=== PATIENT | female | born 1995 | race Caucasian/White ===

== ENCOUNTER 2017-01-23 01:37 | Emergency (ER) | payer SELFPAY ==
[~2017-01-23] VITALS: Ht 167.6 cm; Wt 52.5 kg
[2017-01-23 01:48] VITALS: Ht 167.6 cm; Wt 52.5 kg
== END 2017-01-23 05:34 | disposition left against medical advice (07) ==
LOC: E/R 01:37
DX: Z53.21 Procedure and treatment not carried out due to patient leaving prior to being seen by health care provider (principal)

== ENCOUNTER 2019-03-20 01:44 | Inpatient (IN) | payer OTHER ==
[~2019-03-20] VITALS: Ht 167.6 cm; Wt 57.5 kg
[2019-03-20 01:48] VITALS: Ht 167.6 cm; Wt 57.5 kg
[2019-03-20] MEDS ORDERED: PREN-93 PO (01:49)
[2019-03-20 01:56] VITALS: BP 115/71; PULSE 86; RESP 16
[2019-03-20] MEDS: TERBUTALINE 1 MG/ML INJ SC PRN ×2 (02:40→03:28)
[2019-03-20] MEDS ORDERED: LACTATED RINGER'S 1,000 ML IV ONE (04:30)
[2019-03-20] MEDS: LACTATED RINGER'S 1,000 ML IV SCH ×6 (05:08→22:49)
[2019-03-20] MEDS ORDERED: NIFEdipine 10 MG CAP PO ONE (06:00)
[2019-03-20] MEDS ORDERED: ACETAMINOPHEN 325 MG TAB PO PRN (07:00)
[2019-03-20] MEDS ORDERED: TERBUTALINE 2.5 MG TAB PO PRN (07:00)
--- NOTE | 2019-03-20 07:09 | TRIAGE ---
OB Triage Datetime Report Generated by CPN: 03/20/2019 07:08 Datetime: 03/20/2019 07:00 Labor Evaluation Frequency: 1.5-5 Monitor Mode: External Duration (sec)2399: 60-110 Pattern: Normal: <= 5 Contractions in 10 Minutes Heart Rate FHR Baseline Rate: 135 Monitor Mode: External US Variability: Moderate 6-25 bpm Accelerations: 15X15 Decelerations: None Category: Category I Datetime: 03/20/2019 06:00 Labor Evaluation Frequency: X6 Monitor Mode: External Duration (sec)2399: 60-80 Pattern: Normal: <= 5 Contractions in 10 Minutes Heart Rate FHR Baseline Rate: 135 Monitor Mode: External US Variability: Moderate 6-25 bpm Accelerations: 15X15 Decelerations: None Datetime: 03/20/2019 05:54 Pain Assessment Pain Scale: 1 Pain Presence: Intermittent Pain Type: Cramping Pain Location: Back Pain Goal: 0 Pain Relief Measures: Comfort Measures Datetime: 03/20/2019 05:00 Labor Evaluation Frequency: 2-4 Monitor Mode: External Duration (sec)2399: 60-160 Pattern: Normal: <= 5 Contractions in 10 Minutes Heart Rate FHR Baseline Rate: 135 Monitor Mode: External US Variability: Moderate 6-25 bpm Accelerations: 15X15 Decelerations: None Category: Category I Datetime: 03/20/2019 04:15 Pain Assessment Pain Scale: 2 Pain Presence: Intermittent Pain Type: Cramping; Contraction Pain Location: Back Pain Goal: 0 Pain Relief Measures: Comfort Measures Datetime: 03/20/2019 04:00 Labor Evaluation Frequency: 1.5-7 Monitor Mode: External Duration (sec)2399: 40-100 Pattern: Normal: <= 5 Contractions in 10 Minutes Heart Rate FHR Baseline Rate: 130 Monitor Mode: External US Variability: Moderate 6-25 bpm Accelerations: 15X15 Decelerations: None Category: Category I Datetime: 03/20/2019 03:00 Labor Evaluation Frequency: 2-3 Monitor Mode: External Duration (sec)2399: 60-120 Pattern: Normal: <= 5 Contractions in 10 Minutes Heart Rate FHR Baseline Rate: 125 Monitor Mode: External US Variability: Moderate 6-25 bpm Accelerations: 15X15 Decelerations: None Datetime: 03/20/2019 02:29 Vaginal Exam Dilatation (cms): 1.5 Effacement (%): 70 Station: -2 Vaginal Bleeding: None Cervix, Consistency: Soft Cervix, Position: Midposition Presentation 'A': Cephalic Datetime: 03/20/2019 01:58 Time of Arrival: 03/20/2019 01:40 EGA: 35.2 Arrived By: Ambulatory Arrived From: Home Chief Complaint: bleeding and back pain Movement: Decreased Contractions: Denies/Absent Rupture of Membranes: Denies Vaginal Bleeding: Small Vaginal Discharge: Present Recent Sexual Intercouse: Denies Abdominal Trauma: Not Applicable Patient Complaints: Cramping; Back Pain Time Provider Notified: 03/20/2019 02:23 Provider Notified: KELLEN (Annotations: Data stored by CPN on behalf of user) Initial Plan: CEFM, UA, TERB, PO HYDRATION, BPP Datetime: 03/20/2019 01:56 Stage of : OB Triage Maternal Assessment Level of Consciousness: Keenly Alert, Responsive DTR's/Clonus: DTRs 2+; No Clonus Headache: Denies Breath Sounds, Left: Clear and Equal Breath Sounds, Right: Clear and Equal Nausea/Vomiting: Denies RUQ Epigastric Pain: Denies Lower Extremities Edema: None Degree: None Upper Extremities Edema: None Degree: None Facial Edema: None Temperature Route: Oral Fall Risk Assessment History of Falling: (0) No Secondary Diagnosis: (0) No Ambulatory Aid: (0) Bedrest/Nurse Assist IV Therapy: (0) No Gait: (0) Normal/Bedrest/Immobile Mental Status: (0) Oriented to Own Ability Fall Score: 0 Fall Risk Score Definition: No Risk: No action required Pain Assessment Pain Scale: 3 Pain Presence: Constant Pain Type: Cramping Pain Location: Abdomen; Back Pain Goal: 0 Pain Relief Measures: Comfort Measures
--- NOTE | 2019-03-20 07:33 | HP ---
Date/Time of Note Date/Time of Note DATE: 03/20/19 TIME: 07:20 OB - History Hx of Present Free Text/Dictation 23 y.o. A1 with an IUP at 35w 2d came in for bleeding and lower back pain and was found to be eliana. Has been given 2 doses of SQ terbutaline and one dose of Procardia to no effect. She is now eliana every 2 minutes but the pt appears very comfortable although she is aware of them. I explained to the pt that we don't normally give magnesium after 34 weeks but we can either admit her and follow her expectantly or can keep giving her terbutaline orally to see if we can delay delivery ( Procardia is not a great choice as the pt's blood pressure runs low as it is). The pt and her partner prefer medication to try to delay delivery. Estimated Due Date: Apr 22, 2019 : 2 Para: 0 Spontaneous : 1 Care: Good Care Ultrasounds: Normal mid trimester US Obstetrical Complications: None Medical Complications: None Other Concerns: PMHx: none. PSHx: none. NKDA. Past Family/Social History * Past Medical, Surgical, Family and Obstetric Histories reviewed from chart. Blood Type: Unknown Rubella: unknown RPR/VDRL: Unknown GBS Status: Unknown HBsAG: Unknown OB Admission Exam Vital Signs Vital Signs Vital Signs Date Temp Pulse Resp B/P (MAP) Pulse Ox O2 O2 Flow FiO2 Time Delivery Rate 03/20/19 98.2 86 16 115/71 Room Air 01:56 (86) Physical Exam HEENT: WNL Heart: Rhythm Normal Lungs: Clear Abdomen: WNL Extremities: Normal Reflexes: Normal Cervical Dilatation: 1cm Effacement: Other (70%) Station: -2 Membranes: Intact Heart Rate: 130's Accelerations: Accelerations Present Decelerations: No Decelerations Varibility: Moderate Contractions on Admission: < 5 Minutes Apart Intensity: Mild OB Assessment/Plan Reason for admission: IUP - Plan: Expectant Management Other plan: Oral terbutaline 2.5 mg p.o. q 4-6 hours prn. Beta-methasone. records. EFW. REN FOREMAN MD Mar 20, 2019 07:30
[2019-03-20] MEDS: BETAMET NA PHOS/AC(6 MG/ML) 2 ML INJ SYG IM SCH ×2 (07:58→23:30)
[2019-03-20] MEDS: PRENATAL VITAMIN PO SCH (09:15)
[2019-03-20] MEDS: DOCUSATE SODIUM 100 MG CAP PO SCH (09:15)
[2019-03-20] MEDS ORDERED: MAGNESIUM SULFATE 4 GM/100 ML 100 ML IV ONE (23:30)
[2019-03-21] MEDS: MAGNESIUM SULFATE 20 GM/500 ML 500 ML IV SCH ×3 (00:36→20:59)
[2019-03-21] MEDS: LACTATED RINGER'S 1,000 ML IV SCH ×3 (05:00→10:32)
[2019-03-21] MEDS: DOCUSATE SODIUM 100 MG CAP PO SCH (10:29)
[2019-03-21] MEDS: PRENATAL VITAMIN PO SCH (10:29)
[2019-03-22] MEDS: LACTATED RINGER'S 1,000 ML IV SCH ×2 (00:13→10:52)
[2019-03-22] MEDS: DOCUSATE SODIUM 100 MG CAP PO SCH (10:51)
[2019-03-22] MEDS: PRENATAL VITAMIN PO SCH (10:51)
--- NOTE | 2019-03-22 16:47 | QN ---
Documentation Comment 35+wks GA sitting comfortably in Bed NST reassuring BPP 05/05 Pelvic exam 1 cm/long /post --->discharged with precautions --->Questions answered --->follow up with provider ZAID BALL M.D. Mar 22, 2019 16:47
--- NOTE | 2019-03-22 16:48 | DS ---
Date/Time of Note Date/Time of Note DATE: 03/22/19 TIME: 16:47 Discharge Summary Admission/Discharge Info Admit Date/Time Mar 20, 2019 at 06:47 Discharge Date/Time mar 22 Discharge Diagnosis labor 35+ Patient Condition: Good Hospital Course uneventful Home Meds Reported Medications Vit No.124/Iron/FA ( Vitamin Tablet) 1 Each Tablet, 1 EACH PO, TAB 03/20/19 Primary Care Provider Care Physician No Primary Pending Labs Laboratory Tests Test 03/21/19 17:46 03/22/19 00:30 03/22/19 06:16 03/22/19 15:22 Magnesium 5.9 5.7 4.5 Level mg/dl (1.7-2.5) mg/dl (1.7-2.5 mg/dl (1.7-2.5 ) ) Membranes NEGATIVE (NEGA Rupture TIVE) AZID BALL M.D. Mar 22, 2019 16:48
== END 2019-03-22 16:53 | disposition home or self-care (01) | DRG 833 ==
LOC: L-D 01:44 → OBT 01:44 → PP1 06:47 → OBT 06:47 → L-D 07:23
PROVIDERS: ADMIT Obstetrics & Gynecology; ATTEND Obstetrics & Gynecology
DX: O60.03 Preterm labor without delivery, third trimester (principal); O46.93 Antepartum hemorrhage, unspecified, third trimester; Z3A.35 35 weeks gestation of pregnancy
CPT/HCPCS: 36415; 76818; 81001; 83735; 84112; 85025; 87081; 96360; 96361; 96372; G0463; J0702; J3105; J3475; J7120

== ENCOUNTER 2019-04-12 23:01 | Inpatient (IN) | payer OTHER ==
[~2019-04-12] VITALS: Ht 167.6 cm; Wt 57.4 kg
[~2019-04-12 23:01] MED LIST: PREN-93 PO
[2019-04-12 23:30] VITALS: BP 104/62; PULSE 90; RESP 15
--- NOTE | 2019-04-13 02:51 | PN ---
Triage Information Date/Time Reason for visit: Uterine contractions Weeks of Gestation 38 weeks and 4 days /Para Diabetes: none Hypertention: none Objective Vital Signs Date Temp Pulse Resp B/P (MAP) Pulse Ox O2 O2 Flow FiO2 Time Delivery Rate 04/12/19 98.5 90 15 104/62 Room Air 23:30 (76) Heart Rate: 130's Heart Rate Comments Tracing Reactive Contractions: 6-10 Minutes Apart Exam Cervix 3 cm Results/Medications Results 24 hrs Laboratory Tests Test 04/12/19 23:10 Urine Color YELLOW Urine Clarity SLIGHTLY CLOUDY A Urine pH 6.0 Urine Specific [place] 1.015 Urine Ketones NEGATIVE Urine Nitrite NEGATIVE Urine Bilirubin NEGATIVE Urine Urobilinogen NEGATIVE Urine Leukocyte Esterase 3+ H Urine Microscopic RBC 4 Urine Microscopic WBC 39 H Urine Squamous Epithelial Cells FEW Urine Bacteria FEW A Urine Hemoglobin NEGATIVE Urine Glucose NEGATIVE Urine Total Protein NEGATIVE Urine Opiates Screen Negative Urine Barbiturates Negative Urine Amphetamines Screen Negative Urine Benzodiazepines Screen Negative Urine Cocaine Screen Negative Urine Cannabinoids Negative Disposition: Assessment/Plan Monitor for labor BPP TERE SZYMANSKI MD Apr 13, 2019 02:51
[2019-04-13] MEDS ORDERED: LACTATED RINGER'S 1,000 ML IV PRN (03:59)
[2019-04-13] MEDS ORDERED: LIDOCAINE 1% (MPF) 30 ML INJ INJ PRN (04:00)
[2019-04-13] MEDS ORDERED: MINERAL OIL LIGHT 10 ML VIAL TOP ONE (04:00)
[2019-04-13] MEDS ORDERED: LACTATED RINGER'S 1,000 ML IV ONE (04:00)
[2019-04-13] MEDS ORDERED: OXYTOCIN 30 UNITS/LR 500 ML IV PRN ×2 (04:00→19:00)
[2019-04-13] MEDS ORDERED: AMPICILLIN 2 GM/NS (PMX) 100 ML IV ONE (04:00)
[2019-04-13] MEDS ORDERED: IBUPROFEN 600 MG TAB PO PRN (04:00)
[2019-04-13] MEDS ORDERED: OXYTOCIN 30 UNITS/LR 500 ML IV SCH ×2 (04:00)
[2019-04-13] MEDS ORDERED: BUTORPHANOL 2 MG INJ IV PRN (04:00)
[2019-04-13] MEDS ORDERED: METHYLERGONOVINE 0.2 MG INJ IM PRN ×2 (04:00→19:00)
[2019-04-13] MEDS ORDERED: CARBOPROST 250 MCG INJ IM PRN ×2 (04:00→19:00)
[2019-04-13] MEDS: LACTATED RINGER'S 1,000 ML IV SCH ×2 (04:49→12:45)
[2019-04-13] MEDS: BUTORPHANOL 2 MG INJ IV PRN ×2 (05:19→10:03)
[2019-04-13] MEDS: AMPICILLIN 1 GM/NS (PMX) 50 ML IV SCH ×3 (08:52→16:00)
[2019-04-13] MEDS: MISOPROSTOL 200 MCG TAB PR PRN ×2 (16:06→16:54)
[2019-04-13 17:50] VITALS: BP 117/83; PULSE 75; RESP 18
--- NOTE | 2019-04-13 17:57 | HP ---
Date/Time of Note Date/Time of Note DATE: 04/13/19 TIME: 17:53 OB - History Hx of Present Free Text/Dictation 23 years old 2 para 0-0-1-0 with single intrauterine at 38 weeks and 5 days with PAWAN of 04/22/2019 complaining of uterine contractions. She states good movement. She denies nausea, vomiting, shortness of breath, chest pain, headache, visual changes, vaginal bleeding or LOF. Chief Complaint: Uterine contractions Estimated Due Date: Apr 22, 2019 : 2 Para: 0 Spontaneous : 1 Therapeutic : 0 Care: Good Care Ultrasounds: Normal mid trimester US Obstetrical Complications: None Medical Complications: None Past Family/Social History * Past Medical, Surgical, Family and Obstetric Histories reviewed from chart. Blood Type: A+ Rubella: immune RPR/VDRL: Negative GBS Status: Unknown HBsAG: Negative OB Admission Exam Vital Signs Vital Signs Vital Signs Date Temp Pulse Resp B/P (MAP) Pulse Ox O2 O2 Flow FiO2 Time Delivery Rate 04/12/19 98.5 90 15 104/62 Room Air 23:30 (76) Physical Exam HEENT: WNL Heart: Rhythm Normal Lungs: Clear Abdomen: WNL Extremities: Normal Cervical Dilatation: 3cm Effacement: 75% Station: -3 Membranes: Intact Heart Rate: 130's Accelerations: Accelerations Present Decelerations: No Decelerations Varibility: Moderate Contractions on Admission: < 5 Minutes Apart Intensity: Moderate Last 72 hours Lab Results CBC & BMP 04/13/19 04:20 OB Assessment/Plan Other plan: 23 years old -0-1-0 at 38 weeks and 5 days in labor -FHR: No sign of metabolic acidosis- Category I -Continuous EFM, toco -CBC, blood type and screen -Analgesia options with R/B/A discussed in detail with patient -Epidural per patient request -Please see the orders -A+/Rubella: Immune -GBS: Unknown, ampicillin ordered Admission, procedures, expectations, risks and possible complications have been discussed in detail with the patient. Risk of vaginal delivery including but not limited to bleeding, infection, cervical laceration, placental retention, injury to fetus, blood transfusion, blood transfusion related infection, risk of anesthesia, adhesion, cervical laceration, episiotomy/laceration, possible delivery with risk of bleeding, infection, injury to other organs (bow el, bladder, ureter, vessels, nerves), injury to fetus, blood transfusion, blood transfusion related infection, risk of anesthesia, scar and hernia formation, needs for future , removal of uterus or any other indicated surgery discussed with the patient. She expressed understanding and repeats the risks. All of her questions were answered. She signed the informed consent. PHYSICIAN'S VERIFICATION OF INFORMED CONSENT The patient and her family were counseled regarding the procedure, its indications, risks, potential complications and alternatives and any questions were answered. Consent was obtained. PLANNED PROCEDURE/TREATMENT: Vaginal delivery, episiotomy, repair of laceration possible delivery COREY ROMERO Apr 13, 2019 17:57
--- NOTE | 2019-04-13 18:03 | LDN ---
Date/Time of Note Date/Time of Note DATE: 04/13/19 TIME: 17:59 Delivery Summary 23 years old -0-1-0 with single intrauterine at 38 weeks and 5 days delivered a viable female over bilateral lateral vaginal wall laceration and median episiotomy. Nose and mouth suction. Rest of body delivered. Cord clamp and caught after stopping pulsation. Baby given to the nurse. Placenta delivered spontaneously and intact with three-vessel cord. Laceration repaired with 2-0 Vicryl and 4-0 chromic. Patient tolerated procedure well Time of [id number] Weight 7 pounds 5 ounces - 3310 g 9 at 1 minutes and 9 at 5 minutes EBL: 350 ml Weeks of Gestation 38 weeks and 5 days Placenta Delivered: Spontaneously Meconium: none Episiotomy: Yes (Median) Indication for episiotomy Small perineum Anesthesia type: Local Estimated blood loss: 350 Sponge & Needle done & correct: Yes All needle counts correct: Yes Any foreign bodies felt in the: No Infant Delivery Information Sex Infant Sex: female Apgars 1 Minute: 9 5 Minute: 9 10 Minute: 10 Suctioning Nose & mouth suctioned at [place]: Yes Umbilical Cord Umbilical cord with: 3 Vessels Cord presentations: no nuchal cord Cord Blood was obtained: Yes Mother & Baby Disposition Disposition Mom & Baby to Maternity; Good: Yes COREY ROMERO Apr 13, 2019 18:02
[2019-04-13] MEDS: LACTATED RINGER'S 1,000 ML IV* SCH (18:46)
[2019-04-13] MEDS: DEXTROSE 5%-LR 1,000 ML IV SCH (18:46)
[2019-04-13] MEDS ORDERED: BENZOCAINE 20% 56 ML SPRAY TOP PRN (19:00)
[2019-04-13] MEDS ORDERED: DIPHENHYDRAMINE 50 MG INJ IV PRN (19:00)
[2019-04-13] MEDS ORDERED: DIBUCAINE 1% 30 GM OINT TOP PRN (19:00)
[2019-04-13] MEDS ORDERED: LANOLIN HPA 1 PKT TOP PRN (19:00)
[2019-04-13] MEDS ORDERED: ONDANSETRON 4 MG INJ IV PRN (19:00)
[2019-04-13] MEDS ORDERED: ZOLPIDEM 5 MG TAB PO PRN (19:00)
[2019-04-13] MEDS ORDERED: OXYCODONE/ASPIRIN (4.88/325) TAB PO PRN (19:00)
[2019-04-13] MEDS ORDERED: ACETAMINOPHEN 325 MG TAB PO PRN (19:00)
[2019-04-13] MEDS ORDERED: WITCH HAZEL/GLYCERIN PAD PR PRN (19:00)
[2019-04-13] MEDS ORDERED: MISOPROSTOL 200 MCG TAB PR PRN (19:00)
[2019-04-13] MEDS ORDERED: MAGNESIUM HYDROXIDE 30ML CUP PO PRN (19:00)
[2019-04-13] MEDS ORDERED: SENNA/DOCUSATE NA (8.6MG/50MG) TAB PO PRN (19:00)
[2019-04-13 20:00] VITALS: BP 110/76; PULSE 69; RESP 20
[2019-04-14] MEDS: IBUPROFEN 600 MG TAB PO SCH ×4 (00:37→18:09)
[2019-04-14] MEDS: LACTATED RINGER'S 1,000 ML IV* SCH ×3 (00:48→18:46)
[2019-04-14] MEDS: DEXTROSE 5%-LR 1,000 ML IV SCH ×3 (02:41→18:46)
[2019-04-14 04:00] VITALS: BP 96/59; PULSE 76; RESP 16
[2019-04-14 08:00] VITALS: BP 95/58; PULSE 60; RESP 18
[2019-04-14 16:00] VITALS: BP 99/69; PULSE 80; RESP 18
--- NOTE | 2019-04-14 18:37 | QN ---
Documentation Comment Patient denies any complaint. Vaginal bleeding decreased. Reports had some dizziness yesterday after delivery and resolved. Urinated. Breast-feeding. Ambulating without any symptoms. Denies any headache, blurred vision, epigastric pain right upper quadrant pain. Physical examination: General appearance: Alert and oriented x4 does not appear to be in any acute distress Abdomen: Soft, fundus palpable 2 to 3 cm below the umbilicus and nontender Breast: No evidence of mastitis or fissure Lungs: Clear to auscultation bilaterally CV: RRR VS - Last 72 Hours, by Label Date Temp Pulse Resp B/P (MAP) Pulse Ox O2 O2 Flow FiO2 Time Delivery Rate 04/14/19 98.2 80 18 99/69 (79) Room Air 16:00 04/14/19 98.1 60 18 95/58 (70) Room Air 08:00 04/14/19 97.9 76 16 96/59 (71) Room Air 04:00 04/13/19 98.2 69 20 110/76 Room Air 20:00 (87) 04/13/19 98.4 75 18 117/83 Room Air 17:50 (94) 04/12/19 98.5 90 15 104/62 Room Air 23:30 (76) Laboratory Tests Test 04/14/19 04:46 04/14/19 07:34 White Blood Count 19.5 #H Red Blood Count 3.13 L Hemoglobin 8.2 L Hematocrit 25.3 L Mean Corpuscular Volume 80.8 L Mean Corpuscular Hemoglobin 26.2 L Mean Corpuscular Hemoglobin Concent 32.4 Red Cell Distribution Width 14.3 Platelet Count 286 Mean Platelet Volume 10.9 H Immature Granulocytes % 0.600 H Neutrophils % 77.2 H Lymphocytes % 12.4 L Monocytes % 9.3 Eosinophils % 0.2 Basophils % 0.3 Nucleated Red Blood Cells % 0.0 Immature Granulocytes # 0.120 H Neutrophils # 15.1 H Lymphocytes # 2.4 Monocytes # 1.8 H Eosinophils # 0.0 Basophils # 0.1 Nucleated Red Blood Cells # 0.0 Lab Scanned Report REFERENCE LAB Assessment: s/p Doing well Anemia, post . Asymptomatic Continue routine post care Start iron BID and Stool softner Anticipate DC home tomorrow LYRIC COPE MD Apr 14, 2019 18:37
[2019-04-14 20:00] VITALS: BP 100/63; PULSE 84; RESP 18
[2019-04-15] MEDS: IBUPROFEN 600 MG TAB PO SCH ×3 (00:31→12:00)
[2019-04-15] MEDS: DEXTROSE 5%-LR 1,000 ML IV SCH ×2 (02:46→10:46)
[2019-04-15] MEDS: LACTATED RINGER'S 1,000 ML IV* SCH ×2 (02:46→10:46)
[2019-04-15 04:25] VITALS: BP 91/52; PULSE 75; RESP 20
[2019-04-15 08:00] VITALS: BP 104/73; PULSE 76; RESP 18
[2019-04-15] MEDS ORDERED: DIPHTH/TET/ACEL PERTUSS (ADULT) 0.5 ML VIAL IM* ONE (09:00)
[2019-04-15] MEDS ORDERED: MEASLES,MUMPS,RUBELLA VACCINE INJ SC* ONE (09:00)
--- NOTE | 2019-04-15 11:28 | PD.PPDC ---
FILM PROCESS OPERATOR Discharge Instruction Diagnosis [id number] Final Diagnosis: Pbtpy3a s/p anemia Condition [id number] Patient Condition: Bdkgj3b Stable Diet [id number] Diet: Xdejh4d Resume Regular Diet Activity/Restrictions [id number] Activity: Xrhqn9k May Shower [id number] Restrictions: Ivihe2u No Lifting No Sexual Activity Nothing in the Vagina No [place] No Tampons, douche Follow-up Follow-up with Physician: 2, Week/Weeks Return to clinic for [id number] OUTREACH CLINICIAN Instructions: [id number] Fever greater than 101 Chills Worsening abdominal pain Excessive Vaginal Bleeding More than 2 pads per hour Unable to tolerate diet [id number] OB Instructions: Ssvkc0p Breast Tenderness Depression Blurried Vision Headache CARLYLE BERRY MD Apr 15, 2019 11:28
--- NOTE | 2019-04-15 11:35 | DS ---
Date/Time of Note Date/Time of Note DATE: 04/15/19 TIME: 11:29 Obstetrical Discharge Record Final Diagnosis Final Diagnosis: Term delivered Vaginal Delivery Obstetrical Delivery: Spontaneous, Episiotomy, Repaired Complications Augmentation: No Induction: No Rupture of Membranes: No Condition on Discharge Physical Assessment Last Vitals: normotensive no tachycardia afebrile no SOB or palpitation or dizziness Voiding: Yes Bowel Movement: Yes Breast: Soft, non-tender Fundus: Firm Abdomen and Incision: n/a Episiotomy: ok pain manageable Calf Tenderness: No Patient Condition: Stable (H&H 04/17. but asymptomatic will send home with Iron supplement , advise to take usual caution) CARLYLE BERRY MD Apr 15, 2019 11:35
== END 2019-04-15 16:53 | disposition home or self-care (01) | DRG 807 ==
LOC: OBT 23:01 → L-D 23:02 → OBT 04-13 03:50 → L-D 04-13 03:50 → MS1 04-13 17:40
PROVIDERS: ADMIT Obstetrics & Gynecology; ATTEND Obstetrics & Gynecology
PROC: 10E0XZZ Delivery of Products of Conception, External Approach (ICD-10-PCS; principal; 2019-04-13)
PROC: 0UQGXZZ Repair Vagina, External Approach (ICD-10-PCS; 2019-04-13)
PROC: 0W8NXZZ Division of Female Perineum, External Approach (ICD-10-PCS; 2019-04-13)
DX: O71.4 Obstetric high vaginal laceration alone (principal); Z37.0 Single live birth; Z3A.38 38 weeks gestation of pregnancy
CPT/HCPCS: 76818; 80307; 81001; 85025; 85610; 85730; 86592; 86850; 86900; 86901; 87340; 87591; 90715; G0463; J0290; J0595; J2590; J7120; J7121